=== PATIENT | female | born 1970 | race African-American/Black ===

== ENCOUNTER 2024-10-26 09:36 | Inpatient (IN) | payer OTHER ==
[2024-10-26] MEDS ORDERED: morphine SULFATE 4 MG/ML VIAL ONE (10:49)
[2024-10-26] MEDS ORDERED: ACETAMINOPHEN INJECTION 100 ML ONE (10:49)
[2024-10-26 10:54] LABS: BASO % 0.9 % (0-2.0); HEMATOCRIT 39.5 % (32.4-45.2); HEMOGLOBIN 13.1 GM/dL (10.7-15.3); LYMPH % 47.9 % (8-40); MCH 29.2 pg (25.7-33.7); MCHC 33.2 g/dl (32.0-36.0); MEAN PLT VOLUME 8.8 fl (7.5-11.1); MONO % 8.3 % (3.8-10.2); NEUT % 40.9 % (42.8-82.8); PLATELET COUNT 259 10^3/uL (134-434); RBC 4.49 M/mm3 (3.60-5.2); RDW 17.7 % (11.6-15.6); WHITE BLOOD COUNT 4.2 K/mm3 (4.0-10.0)
[2024-10-26 11:09] LABS: POTASSIUM 4.5 mmol/L (3.5-5.1)
[2024-10-26 11:11] LABS: BLOOD UREA NITROGEN 21.1 mg/dL (7-18); CALCIUM 9.2 mg/dL (8.5-10.1)
[2024-10-26 11:12] LABS: ALBUMIN 3.6 g/dl (3.4-5.0)
[2024-10-26] MEDS: ACETAMINOPHEN 1000 MG/100 ML BAG IVPB ONE (11:14)
[2024-10-26 11:15] LABS: CREATININE 1.1 mg/dL (0.55-1.3)
[2024-10-26] MEDS: morphine CARPU-JECT 4 MG/1 ML DISP.SYRIN IVPUSH ONE (11:15)
[2024-10-26 11:17] LABS: BILIRUBIN,TOTAL 0.5 mg/dL (0.2-1); TOT PROT 7.7 g/dl (6.4-8.2)
[2024-10-26 11:19] LABS: HCG,QUALITATIVE URINE Negative
[2024-10-26 11:25] LABS: PH,URINE 5.5 (5.0-8.0); URINE APPEARANCE Clear; URINE BILIRUBIN Negative (NEGATIVE); URINE COLOR Yellow; URINE GLUCOSE (UA) Negative (NEGATIVE); URINE KETONE Negative (NEGATIVE); URINE LEUK ESTERASE Negative (NEGATIVE); URINE NITRITE Negative (NEGATIVE); URINE PROTEIN Negative (NEGATIVE); URINE UROBILINOGEN 0.2 mg/dL (0.2-1.0)
[2024-10-26 11:40] LABS: THROAT:GRP A STREP NOT DETECTED (NOTDETECTED)
[2024-10-26 11:56] LABS: LACTIC ACID 4.4 mmol/L (0.4-2.0)
[2024-10-26 15:12] LABS: LACTIC ACID 3.4 mmol/L (0.4-2.0)
[2024-10-26] MEDS: SODIUM CHLORIDE 1,000 ML IV STA (15:38)
[2024-10-26 18:28] VITALS: BMI 44.0
[2024-10-26] MEDS: ACETAMINOPHEN 500 MG TABLET (FP) PO PRN (19:18)
[2024-10-26] MEDS: LACTATED RINGERS SOLUTION 1,000 ML/1,000 ML INFUS.BAG IV SCH (19:30)
[2024-10-26] MEDS: ACETAMINOPHEN 500 MG TABLET (FP) PO ONE (19:59)
[2024-10-26] MEDS: HEPARIN NA (PORCINE) 5,000 UNITS/ML 1ML VIAL SQ SCH (21:56)
[2024-10-26] MEDS: GABAPENTIN 400 MG CAPSULE PO SCH (21:57)
[2024-10-27 00:03] LABS: HIV INTERPRETATION NEGATIVE (NEGATIVE)
[2024-10-27] MEDS: ONDANSETRON 4 MG/2 ML VIAL IVPUSH ONE (07:17)
[2024-10-27 09:27] LABS: BASO % 0.6 % (0-2.0); EOS % 1.9 % (0-4.5); HEMOGLOBIN 11.9 GM/dL (10.7-15.3); LYMPH % 40.5 % (8-40); MCH 28.8 pg (25.7-33.7); MEAN CELL VOLUME 89.9 fl (80-96); MEAN PLT VOLUME 9.8 fl (7.5-11.1); MONO % 9.5 % (3.8-10.2); NEUT % 47.5 % (42.8-82.8); PLATELET COUNT 209 10^3/uL (134-434); RBC 4.12 M/mm3 (3.60-5.2); RDW 17.3 % (11.6-15.6); WHITE BLOOD COUNT 4.5 K/mm3 (4.0-10.0)
[2024-10-27] MEDS ORDERED: CEFTRIAXONE 1 GM in DEXTROSE 5%-WATER - 50 ML IVPB SCH (10:00)
[2024-10-27] MEDS: CEFTRIAXONE 1 G/50 ML PREMIX 50 ML IVPB SCH (11:01)
[2024-10-27 11:37] LABS: POTASSIUM 3.6 mmol/L (3.5-5.1)
[2024-10-27 11:47] LABS: ALBUMIN 3.2 g/dl (3.4-5.0)
[2024-10-27 11:49] LABS: TOT PROT 6.6 g/dl (6.4-8.2)
[2024-10-27 11:50] LABS: BILIRUBIN,DIRECT 0.3 mg/dL (0.0-0.2)
[2024-10-27 11:51] LABS: BLOOD UREA NITROGEN 14.2 mg/dL (7-18); CALCIUM 8.4 mg/dL (8.5-10.1)
[2024-10-27 11:52] LABS: BILIRUBIN,TOTAL 0.9 mg/dL (0.2-1)
[2024-10-27] MEDS: VANCOMYCIN ORAL SOLUTION 125 MG/2.5 ML PO SCH (12:35)
[2024-10-27] MEDS: PATIENT'S OWN MEDICATION (NON-FORMULARY) (Meloxicam [Meloxicam] 7.5 MG Tablet) PO SCH (13:57)
[2024-10-27] MEDS: DEXTROSE 5%-NORMAL SALINE 1,000 ML IV SCH (17:48)
[2024-10-27] MEDS: PIPERACILLIN/TAZOB 4.5 GM 4.5 GM/100 ML BAG IVPB SCH (17:49)
[2024-10-27] MEDS ORDERED: PIPERACILLIN/TAZOB 3.375 GM 3.375 GM in DEXTROSE 5%-WATER - 50 ML IVPB SCH (18:00)
[2024-10-27] MEDS ORDERED: PIPERACILLIN/TAZOB 3.375 GM 50 ML IVPB SCH (18:00)
[2024-10-28 10:38] LABS: BASO % 0.8 % (0-2.0); EOS % 5.3 % (0-4.5); HEMATOCRIT 37.7 % (32.4-45.2); HEMOGLOBIN 12.4 GM/dL (10.7-15.3); LYMPH % 30.1 % (8-40); MCH 29.1 pg (25.7-33.7); MCHC 32.8 g/dl (32.0-36.0); MEAN CELL VOLUME 88.6 fl (80-96); MEAN PLT VOLUME 9.1 fl (7.5-11.1); NEUT % 54.8 % (42.8-82.8); PLATELET COUNT 192 10^3/uL (134-434); RBC 4.25 M/mm3 (3.60-5.2); RDW 17.6 % (11.6-15.6); WHITE BLOOD COUNT 4.1 K/mm3 (4.0-10.0)
[2024-10-28 11:01] LABS: POTASSIUM 4.1 mmol/L (3.5-5.1)
[2024-10-28 11:06] LABS: ALBUMIN 3.4 g/dl (3.4-5.0)
[2024-10-28 11:07] LABS: BLOOD UREA NITROGEN 8.3 mg/dL (7-18)
[2024-10-28 11:08] LABS: CALCIUM 8.1 mg/dL (8.5-10.1); MAGNESIUM 1.9 mg/dL (1.8-2.4)
[2024-10-28 11:11] LABS: BILIRUBIN,TOTAL 0.5 mg/dL (0.2-1); TOT PROT 7.2 g/dl (6.4-8.2)
[2024-10-28] MEDS: MINERAL OIL/PET HY-PHL TOPICAL OINTMENT 454 GM JAR TP SCH (21:14)
[2024-10-29] MEDS: morphine SULFATE 4 MG/ML VIAL IVPB PRN (01:37)
[2024-10-29 08:59] LABS: BASO % 0.8 % (0-2.0); EOS % 5.5 % (0-4.5); HEMATOCRIT 34.1 % (32.4-45.2); HEMOGLOBIN 11.2 GM/dL (10.7-15.3); MCH 29.7 pg (25.7-33.7); MCHC 32.7 g/dl (32.0-36.0); MEAN CELL VOLUME 90.6 fl (80-96); MEAN PLT VOLUME 9.4 fl (7.5-11.1); MONO % 9.5 % (3.8-10.2); NEUT % 45.2 % (42.8-82.8); PLATELET COUNT 166 10^3/uL (134-434); RBC 3.76 M/mm3 (3.60-5.2); RDW 16.9 % (11.6-15.6); WHITE BLOOD COUNT 3.9 K/mm3 (4.0-10.0)
[2024-10-29 09:14] LABS: CHLORIDE 108 mmol/L (98-107); POTASSIUM 3.8 mmol/L (3.5-5.1); SODIUM 142 mmol/L (136-145)
[2024-10-29 09:19] LABS: CALCIUM 7.7 mg/dL (8.5-10.1)
[2024-10-29 09:20] LABS: ALBUMIN 3.1 g/dl (3.4-5.0); ANION GAP 7 mmol/L (4-13); CO2 26 mmol/L (21-32); GLUCOSE,RANDOM 113 mg/dL (74-106); MAGNESIUM 1.8 mg/dL (1.8-2.4)
[2024-10-29 09:21] LABS: BLOOD UREA NITROGEN 2.7 mg/dL (7-18)
[2024-10-29 09:23] LABS: CREATININE 0.8 mg/dL (0.55-1.3); SGOT/AST 74 U/L (15-37); SGPT/ALT 56 U/L (13-61)
[2024-10-29 09:25] LABS: BILIRUBIN,TOTAL 0.4 mg/dL (0.2-1); TOT PROT 6.4 g/dl (6.4-8.2)
[2024-10-29 09:26] LABS: ALK PHOS 80 U/L (45-117)
[2024-10-29] MEDS: LIDOCAINE 5% TOPICAL PATCH TP SCH (18:44)
[2024-10-29] MEDS: LIDOCAINE PATCH REMOVAL MC SCH (22:30)
[2024-10-30 09:50] LABS: BASO % 0.5 % (0-2.0); EOS % 4.8 % (0-4.5); HEMATOCRIT 34.8 % (32.4-45.2); HEMOGLOBIN 11.4 GM/dL (10.7-15.3); LYMPH % 34.4 % (8-40); MCH 29.5 pg (25.7-33.7); MCHC 32.8 g/dl (32.0-36.0); MEAN CELL VOLUME 89.9 fl (80-96); MEAN PLT VOLUME 9.5 fl (7.5-11.1); MONO % 8.2 % (3.8-10.2); NEUT % 52.1 % (42.8-82.8); PLATELET COUNT 159 10^3/uL (134-434); RBC 3.87 M/mm3 (3.60-5.2); RDW 17.1 % (11.6-15.6); WHITE BLOOD COUNT 4.5 K/mm3 (4.0-10.0)
[2024-10-30 10:04] LABS: POTASSIUM 3.4 mmol/L (3.5-5.1)
[2024-10-30 10:17] LABS: ALBUMIN 3.2 g/dl (3.4-5.0); BLOOD UREA NITROGEN 3.5 mg/dL (7-18); CALCIUM 7.9 mg/dL (8.5-10.1); MAGNESIUM 1.7 mg/dL (1.8-2.4)
[2024-10-30 10:20] LABS: CREATININE 0.8 mg/dL (0.55-1.3)
[2024-10-30 10:22] LABS: BILIRUBIN,TOTAL 0.6 mg/dL (0.2-1); TOT PROT 6.6 g/dl (6.4-8.2)
[2024-10-30] MEDS: POTASSIUM CHLORIDE ORAL LIQUID 20 MEQ/15 ML PO ONE (11:18)
[2024-10-31 09:21] LABS: BASO % 0.6 % (0-2.0); HEMOGLOBIN 12.1 GM/dL (10.7-15.3); LYMPH % 29.4 % (8-40); MCH 28.9 pg (25.7-33.7); MCHC 31.8 g/dl (32.0-36.0); MEAN CELL VOLUME 90.7 fl (80-96); MEAN PLT VOLUME 9.1 fl (7.5-11.1); MONO % 10.3 % (3.8-10.2); NEUT % 56.7 % (42.8-82.8); PLATELET COUNT 161 10^3/uL (134-434); RBC 4.19 M/mm3 (3.60-5.2); WHITE BLOOD COUNT 4.8 K/mm3 (4.0-10.0)
[2024-10-31 09:34] LABS: INR 1.04 (0.83-1.09); PROTHROMBIN TIME (PATIENT) 11.7 SEC (9.7-13.0)
[2024-10-31 09:49] LABS: POTASSIUM 3.8 mmol/L (3.5-5.1)
[2024-10-31 10:00] LABS: TOT PROT 7.3 g/dl (6.4-8.2)
[2024-10-31 10:01] LABS: ALBUMIN 3.5 g/dl (3.4-5.0); BILIRUBIN,TOTAL 0.6 mg/dL (0.2-1)
[2024-10-31 10:02] LABS: MAGNESIUM 1.9 mg/dL (1.8-2.4)
[2024-10-31 10:04] LABS: CREATININE 0.9 mg/dL (0.55-1.3)
[2024-10-31 10:05] LABS: CALCIUM 9.4 mg/dL (8.5-10.1)
[2024-10-31] MEDS: VANCOMYCIN 250 MG/5 ML ORAL SOLUTION (RESTRICTED TO ID ONLY) PO SCH (11:42)
[2024-10-31 14:36] VITALS: RESP 18
[2024-11-01 09:39] LABS: BASO % 0.4 % (0-2.0); EOS % 5.5 % (0-4.5); HEMATOCRIT 35.2 % (32.4-45.2); HEMOGLOBIN 11.8 GM/dL (10.7-15.3); MCH 30.1 pg (25.7-33.7); MCHC 33.4 g/dl (32.0-36.0); MEAN CELL VOLUME 90.1 fl (80-96); MEAN PLT VOLUME 9.6 fl (7.5-11.1); MONO % 12.3 % (3.8-10.2); NEUT % 49.8 % (42.8-82.8); PLATELET COUNT 144 10^3/uL (134-434); RBC 3.91 M/mm3 (3.60-5.2); RDW 17.3 % (11.6-15.6); WHITE BLOOD COUNT 4.9 K/mm3 (4.0-10.0)
[2024-11-01 09:51] LABS: POTASSIUM 3.7 mmol/L (3.5-5.1)
[2024-11-01 10:00] LABS: ALBUMIN 3.2 g/dl (3.4-5.0); CALCIUM 9.5 mg/dL (8.5-10.1); MAGNESIUM 1.7 mg/dL (1.8-2.4)
[2024-11-01 10:04] LABS: BILIRUBIN,TOTAL 0.4 mg/dL (0.2-1); TOT PROT 6.8 g/dl (6.4-8.2)
[2024-11-01] MEDS: MAGNESIUM SULFATE IN WATER 2 GM/50 ML IVPB IVPB ONE (12:37)
[2024-11-02 08:39] LABS: BASO % 0.4 % (0-2.0); EOS % 3.7 % (0-4.5); HEMOGLOBIN 11.4 GM/dL (10.7-15.3); LYMPH % 32.7 % (8-40); MCH 29.5 pg (25.7-33.7); MCHC 32.5 g/dl (32.0-36.0); MEAN CELL VOLUME 90.8 fl (80-96); MEAN PLT VOLUME 9.6 fl (7.5-11.1); NEUT % 51.2 % (42.8-82.8); PLATELET COUNT 157 10^3/uL (134-434); RBC 3.85 M/mm3 (3.60-5.2); RDW 17.9 % (11.6-15.6); WHITE BLOOD COUNT 5.3 K/mm3 (4.0-10.0)
[2024-11-02 08:40] LABS: POTASSIUM 3.9 mmol/L (3.5-5.1)
[2024-11-02 08:47] LABS: CALCIUM 9.4 mg/dL (8.5-10.1); CREATININE 0.9 mg/dL (0.55-1.3)
[2024-11-02 08:48] LABS: ALBUMIN 3.1 g/dl (3.4-5.0); BLOOD UREA NITROGEN 10.2 mg/dL (7-18)
[2024-11-02 08:49] LABS: BILIRUBIN,TOTAL 0.3 mg/dL (0.2-1); TOT PROT 6.6 g/dl (6.4-8.2)
[2024-11-02 09:38] VITALS: BP 130/91; PULSE 75; TEMP 98.2
[2024-11-02] MEDS: ACETAMINOPHEN 500 MG TABLET (FP) PO ONE (11:56)
== END 2024-11-02 13:18 | disposition home or self-care (01) | DRG 248 ==
LOC: JER 09:36 → JERBED 15:38 → OBSVTOIN 16:42 → J8W 17:42
PROVIDERS: ADMIT Internal Medicine; ATTEND Nurse Practitioner Acute Care
DX: A04.72 Enterocolitis due to Clostridium difficile, not specified as recurrent (principal); E87.20 Acidosis, unspecified; Z68.41 Body mass index [BMI] 40.0-44.9, adult; E66.01 Morbid (severe) obesity due to excess calories; R16.0 Hepatomegaly, not elsewhere classified; K76.0 Fatty (change of) liver, not elsewhere classified; F17.210 Nicotine dependence, cigarettes, uncomplicated; K57.32 Diverticulitis of large intestine without perforation or abscess without bleeding; M06.9 Rheumatoid arthritis, unspecified
CPT/HCPCS: 0241U-QW; 36415; 74176-TC; 74177-TC; 76700-TC; 76882-TC-RT-FY; 80048; 80053; 80076; 81003; 82977; 83605; 83690; 83735; 84703; 85025; 85610; 86140; 86704; 86708; 86803; 87045; 87046; 87086; 87324; 87340; 87389; 87449; 87493; 87517; 87651; 93005; 93010; 99285-25; G0378; J0131; J1644

== ENCOUNTER 2024-11-18 12:04 | Inpatient (IN) | payer OTHER ==
[2024-11-18] MEDS ORDERED: ACETAMINOPHEN 500 MG TABLET (FP) ONE (12:42)
[2024-11-18] MEDS: ACETAMINOPHEN 500 MG TABLET (FP) PO ONE (12:45)
[2024-11-18 13:16] LABS: BASO % 0.4 % (0-2.0); EOS % 1.4 % (0-4.5); HEMATOCRIT 40.2 % (32.4-45.2); LYMPH % 35.7 % (8-40); MCH 29.3 pg (25.7-33.7); MCHC 32.4 g/dl (32.0-36.0); MEAN CELL VOLUME 90.5 fl (80-96); MEAN PLT VOLUME 8.9 fl (7.5-11.1); MONO % 11.2 % (3.8-10.2); NEUT % 51.3 % (42.8-82.8); PLATELET COUNT 336 10^3/uL (134-434); RBC 4.44 M/mm3 (3.60-5.2); RDW 18.3 % (11.6-15.6); WHITE BLOOD COUNT 8.3 K/mm3 (4.0-10.0)
[2024-11-18 13:24] LABS: INR 1.06 (0.83-1.09)
[2024-11-18 13:27] LABS: ACTIVATED PTT 32.2 SECONDS (25.2-36.5)
[2024-11-18 13:42] LABS: CHLORIDE 110 mmol/L (98-107); SODIUM 143 mmol/L (136-145)
[2024-11-18 13:44] LABS: CALCIUM 9.1 mg/dL (8.5-10.1)
[2024-11-18 13:45] LABS: ALBUMIN 3.5 g/dl (3.4-5.0); BLOOD UREA NITROGEN 9.6 mg/dL (7-18); CO2 25 mmol/L (21-32); GLUCOSE,RANDOM 102 mg/dL (74-106); MAGNESIUM 2.5 mg/dL (1.8-2.4)
[2024-11-18 13:48] LABS: ANION GAP 8 mmol/L (4-13); CREATININE 0.9 mg/dL (0.55-1.3); PHOSPHOROUS 4.7 mg/dL (2.5-4.9); POTASSIUM 6.4 mmol/L (3.5-5.1); SGOT/AST 47 U/L (15-37); SGPT/ALT 38 U/L (13-61)
[2024-11-18 13:49] LABS: BILIRUBIN,TOTAL 0.4 mg/dL (0.2-1); TOT PROT 8.3 g/dl (6.4-8.2)
[2024-11-18 13:51] LABS: ALK PHOS 123 U/L (45-117)
[2024-11-18 16:11] LABS: CHLORIDE 113 mmol/L (98-107); POTASSIUM 4.2 mmol/L (3.5-5.1); SODIUM 147 mmol/L (136-145)
[2024-11-18 16:13] LABS: CALCIUM 9.1 mg/dL (8.5-10.1)
[2024-11-18 16:14] LABS: ALBUMIN 3.3 g/dl (3.4-5.0); ANION GAP 8 mmol/L (4-13); BLOOD UREA NITROGEN 11.6 mg/dL (7-18); CO2 26 mmol/L (21-32); GLUCOSE,RANDOM 100 mg/dL (74-106)
[2024-11-18 16:17] LABS: CREATININE 0.9 mg/dL (0.55-1.3); SGOT/AST 26 U/L (15-37); SGPT/ALT 30 U/L (13-61)
[2024-11-18 16:19] LABS: BILIRUBIN,TOTAL 0.2 mg/dL (0.2-1); TOT PROT 7.4 g/dl (6.4-8.2)
[2024-11-18 16:20] LABS: ALK PHOS 116 U/L (45-117)
[2024-11-18] MEDS ORDERED: KETOROLAC TROMETHAMINE 15 MG/ML VIAL ONE (20:25)
[2024-11-18] MEDS: KETOROLAC TROMETHAMINE 15 MG/ML VIAL IM ONE (20:32)
[2024-11-19] MEDS ORDERED: ACETAMINOPHEN INJECTION 100 ML ONE (02:23)
[2024-11-19] MEDS ORDERED: GABAPENTIN 400 MG CAPSULE ONE (02:23)
[2024-11-19] MEDS: ACETAMINOPHEN 1000 MG/100 ML BAG IVPB PRN (02:29)
[2024-11-19] MEDS: GABAPENTIN 400 MG CAPSULE PO SCH (02:29)
[2024-11-19] MEDS: KETOROLAC TROMETHAMINE 15 MG/ML VIAL IVPUSH PRN (05:31)
[2024-11-19 06:54] VITALS: BMI 42.5
[2024-11-19] MEDS ORDERED: PATIENT'S OWN MEDICATION (NON-FORMULARY) (Meloxicam [Meloxicam] 7.5 MG Tablet) PO SCH (10:00)
[2024-11-19] MEDS: LACTATED RINGERS SOLUTION 1,000 ML/1,000 ML INFUS.BAG IV SCH (10:00)
[2024-11-19] MEDS: LIDOCAINE 4% PATCH TP SCH (10:25)
[2024-11-19] MEDS: ENOXAPARIN NA (PORCINE) 40 MG/0.4 ML DISP.SYRIN SQ SCH ×2 (10:26→21:17)
[2024-11-19] MEDS: ONDANSETRON 4 MG/2 ML VIAL IVPUSH PRN (12:47)
[2024-11-19] MEDS: CYCLOBENZAPRINE HCL 5 MG TABLET PO SCH (14:31)
[2024-11-19] MEDS: LIDOCAINE PATCH REMOVAL MC SCH (21:18)
[2024-11-20 07:45] LABS: METHADONE, UR NEGATIVE (NEGATIVE)
[2024-11-20 07:51] LABS: PH,URINE 5.5 (5.0-8.0); URINE APPEARANCE CLEAR; URINE BILIRUBIN NEGATIVE (NEGATIVE); URINE COLOR YELLOW; URINE GLUCOSE (UA) NEGATIVE (NEGATIVE); URINE KETONE TRACE (NEGATIVE); URINE LEUK ESTERASE NEGATIVE (NEGATIVE); URINE NITRITE NEGATIVE (NEGATIVE); URINE PROTEIN TRACE (NEGATIVE); URINE UROBILINOGEN 0.2 mg/dL (0.2-1.0)
[2024-11-20 07:54] LABS: COCAINE, UR NEGATIVE (NEGATIVE); OPIATES, URI NEGATIVE (NEGATIVE); PHENCYCLIDINE,URINE NEGATIVE (NEGATIVE); URINE AMPHETAMINES NEGATIVE (NEGATIVE); URINE BARBITURATES NEGATIVE (NEGATIVE); URINE BENZODIAZEPINES NEGATIVE (NEGATIVE)
[2024-11-20] MEDS: TAMSULOSIN HCL 0.4 MG CAP PO ONE (17:56)
[2024-11-21 13:33] LABS: BASO % 0.3 % (0-2.0); EOS % 2.2 % (0-4.5); HEMATOCRIT 33.6 % (32.4-45.2); HEMOGLOBIN 11.1 GM/dL (10.7-15.3); LYMPH % 24.1 % (8-40); MCH 29.3 pg (25.7-33.7); MEAN CELL VOLUME 88.9 fl (80-96); MEAN PLT VOLUME 9.3 fl (7.5-11.1); NEUT % 66.4 % (42.8-82.8); PLATELET COUNT 256 10^3/uL (134-434); RBC 3.78 M/mm3 (3.60-5.2); RDW 17.2 % (11.6-15.6); WHITE BLOOD COUNT 6.9 K/mm3 (4.0-10.0)
[2024-11-21 13:55] LABS: POTASSIUM 4.1 mmol/L (3.5-5.1)
[2024-11-21 13:57] LABS: CALCIUM 8.9 mg/dL (8.5-10.1)
[2024-11-21 13:58] LABS: BLOOD UREA NITROGEN 12.3 mg/dL (7-18)
[2024-11-21 14:01] LABS: CREATININE 0.9 mg/dL (0.55-1.3)
[2024-11-21 14:02] LABS: BILIRUBIN,TOTAL 0.5 mg/dL (0.2-1)
[2024-11-21 14:03] LABS: TOT PROT 6.7 g/dl (6.4-8.2)
[2024-11-21] MEDS ORDERED: ALBUTEROL SO4 HFA INHALER IH PRN (16:08)
[2024-11-21] MEDS: MINERAL OIL/PET HY-PHL TOPICAL OINTMENT 454 GM JAR TP SCH (22:41)
[2024-11-22 09:07] LABS: BASO % 0.3 % (0-2.0); EOS % 3.2 % (0-4.5); HEMATOCRIT 33.4 % (32.4-45.2); HEMOGLOBIN 11.2 GM/dL (10.7-15.3); LYMPH % 32.7 % (8-40); MCH 29.7 pg (25.7-33.7); MCHC 33.6 g/dl (32.0-36.0); MEAN CELL VOLUME 88.3 fl (80-96); MEAN PLT VOLUME 9.1 fl (7.5-11.1); MONO % 9.1 % (3.8-10.2); NEUT % 54.7 % (42.8-82.8); PLATELET COUNT 218 10^3/uL (134-434); RBC 3.78 M/mm3 (3.60-5.2); RDW 17.1 % (11.6-15.6); WHITE BLOOD COUNT 4.9 K/mm3 (4.0-10.0)
[2024-11-22 09:38] LABS: ALBUMIN 2.9 g/dl (3.4-5.0)
[2024-11-22 09:39] LABS: MAGNESIUM 1.9 mg/dL (1.8-2.4)
[2024-11-22 09:43] LABS: BILIRUBIN,TOTAL 0.3 mg/dL (0.2-1); BLOOD UREA NITROGEN 12.6 mg/dL (7-18); CREATININE 0.8 mg/dL (0.55-1.3)
[2024-11-22 09:44] LABS: TOT PROT 6.6 g/dl (6.4-8.2)
[2024-11-23] MEDS: KETOROLAC TROMETHAMINE 10 MG TABLET PO PRN (10:59)
[2024-11-24] MEDS: ACETAMINOPHEN 325 MG TABLET (FP) PO PRN
[2024-11-24 09:24] VITALS: RESP 20
[2024-11-24] MEDS: LIDOCAINE 5% TOPICAL PATCH TP SCH (14:54)
[2024-11-24 15:24] VITALS: BP 129/82; PULSE 87; TEMP 97.5
[2024-11-24] MEDS: LIDOCAINE PATCH REMOVAL MC SCH (21:13)
== END 2024-11-24 21:50 | DRG 347 ==
LOC: JER 12:04 → JERBED 23:15 → J8W 11-19 05:27
PROVIDERS: ADMIT Internal Medicine; ATTEND Nurse Practitioner Family
DX: M43.16 Spondylolisthesis, lumbar region (principal); Z68.41 Body mass index [BMI] 40.0-44.9, adult; I10 Essential (primary) hypertension; E66.01 Morbid (severe) obesity due to excess calories; F17.210 Nicotine dependence, cigarettes, uncomplicated; J45.909 Unspecified asthma, uncomplicated; M06.9 Rheumatoid arthritis, unspecified
CPT/HCPCS: 0241U-QW; 36415; 70450-TC; 71045-TC-FY; 72125-TC; 72131-TC; 73521-TC-FY; 74019-TC-FY; 80053; 80307; 81003; 82550; 82553; 83735; 84100; 84703; 85025; 85610; 85730; 93005; 93010; 97116-GP; 99285-25; J0131

== ENCOUNTER 2025-04-27 10:39 | Emergency (ER) | payer OTHER ==
[2025-04-27 11:29] VITALS: TEMP 98.7; BMI 43.7
[2025-04-27] MEDS: ACETAMINOPHEN 1000 MG/100 ML BAG IVPB ONE ×2 (12:58→19:38)
[2025-04-27] MEDS: SODIUM CHLORIDE 1,000 ML IV STA (12:58)
[2025-04-27] MEDS ORDERED: ACETAMINOPHEN INJECTION 100 ML ONE ×2 (12:59→19:32)
[2025-04-27 13:11] LABS: ABSOLUTE IMMATURE GRANULOCYTES 0.02 x10^3/uL (0.0-0.031); BASOPHILS # 0.03 x10^3/uL (0.01-0.08); EOSINOPHIL % 0.8 % (0.7-5.8); EOSINOPHILS # 0.05 x10^3/uL (0.04-0.36); HEMOGLOBIN 11.7 g/dL (11.2-15.7); MCHC 32.5 g/dl (32.2-35.5); MEAN CELL VOLUME 88.9 fl (79.4-94.8); MEAN PLT VOLUME 11.4 fl (9.4-12.3); MONOCYTE # 0.65 x10^3/uL (0.24-0.86); MONOCYTE % 9.9 % (4.7-12.5); PLATELET COUNT 235 x10^3/uL (182-369); RDW 16.4 % (12.3-16.6)
[2025-04-27 13:18] LABS: INR 0.99 (0.83-1.09); PROTHROMBIN TIME (PATIENT) 10.9 SEC (9.7-13.0)
[2025-04-27 13:40] LABS: CHLORIDE 104 mmol/L (98-107); SODIUM 135 mmol/L (136-145)
[2025-04-27 13:41] LABS: POTASSIUM 7.7 mmol/L (3.5-5.1)
[2025-04-27 13:42] LABS: CALCIUM 9.6 mg/dL (8.5-10.1)
[2025-04-27 13:43] LABS: ALBUMIN 3.2 g/dl (3.4-5.0); ANION GAP 6 mmol/L (4-13); BLOOD UREA NITROGEN 20.4 mg/dL (7-18); CO2 26 mmol/L (21-32); GLUCOSE,RANDOM 108 mg/dL (74-106); MAGNESIUM 2.4 mg/dL (1.8-2.4)
[2025-04-27 13:46] LABS: CREATININE 1.2 mg/dL (0.55-1.3)
[2025-04-27 13:47] LABS: BILIRUBIN,TOTAL 0.9 mg/dL (0.2-1); SGOT/AST 140 U/L (15-37); SGPT/ALT 93 U/L (13-61); TOT PROT 7.9 g/dl (6.4-8.2)
[2025-04-27 13:49] LABS: ALK PHOS 126 U/L (45-117)
[2025-04-27] MEDS ORDERED: KETOROLAC TROMETHAMINE 30 MG/1 ML VIAL ONE (14:10)
[2025-04-27] MEDS: KETOROLAC TROMETHAMINE 30 MG/1 ML VIAL IVPUSH ONE (14:11)
[2025-04-27 16:06] LABS: POTASSIUM 3.7 mmol/L (3.5-5.1)
[2025-04-27 16:07] LABS: CALCIUM 8.4 mg/dL (8.5-10.1)
[2025-04-27 16:08] LABS: BLOOD UREA NITROGEN 19.8 mg/dL (7-18)
[2025-04-27 16:11] LABS: CREATININE 1.2 mg/dL (0.55-1.3)
[2025-04-27] MEDS ORDERED: EPINEPHrine 1:10,000 (P-F SYR) 1 MG/10 ML DISP.SYRIN ONE (21:58)
[2025-04-28] MEDS ORDERED: ACETAMINOPHEN INJECTION 100 ML ONE (01:49)
[2025-04-28] MEDS: ACETAMINOPHEN 1000 MG/100 ML BAG IVPB ONE (01:56)
[2025-04-28 04:33] VITALS: BP 143/70; PULSE 81; RESP 17
== END 2025-04-28 04:33 | disposition home or self-care (01) ==
LOC: JER 10:39
PROC: 3E0333Z Introduction of Anti-inflammatory into Peripheral Vein, Percutaneous Approach (ICD-10-PCS; principal; 2025-04-27)
PROC: 3E033NZ Introduction of Analgesics, Hypnotics, Sedatives into Peripheral Vein, Percutaneous Approach (ICD-10-PCS; 2025-04-27)
PROC: 3E033NZ Introduction of Analgesics, Hypnotics, Sedatives into Peripheral Vein, Percutaneous Approach (ICD-10-PCS; 2025-04-27)
PROC: 3E0337Z Introduction of Electrolytic and Water Balance Substance into Peripheral Vein, Percutaneous Approach (ICD-10-PCS; 2025-04-27)
PROC: 3E033NZ Introduction of Analgesics, Hypnotics, Sedatives into Peripheral Vein, Percutaneous Approach (ICD-10-PCS; 2025-04-28)
DX: M54.50 Low back pain, unspecified (principal); G89.29 Other chronic pain; N93.9 Abnormal uterine and vaginal bleeding, unspecified; R26.2 Difficulty in walking, not elsewhere classified
CPT/HCPCS: 36415; 72132-TC; 74176-TC; 76830-TC; 80048; 80053; 83735; 85025; 85610; 85730; 93005; 93010; 99285-25; J0131

== ENCOUNTER 2025-08-07 15:10 | Emergency (ER) | payer OTHER ==
[2025-08-07 15:41] VITALS: BMI 43.7
[2025-08-07] MEDS ORDERED: ALBUTEROL SO4 2.5/IPRATROPIUM 0.5 INH SOL 3 ML VIAL.NEB. NEB ONE (16:20)
[2025-08-07] MEDS ORDERED: ACETAMINOPHEN INJECTION 100 ML ONE (16:20)
[2025-08-07] MEDS: ACETAMINOPHEN 1000 MG/100 ML BAG IVPB ONE (16:26)
[2025-08-07] MEDS: ALBUTEROL SO4 2.5/IPRATROPIUM 0.5 INH SOL 3 ML VIAL.NEB. NEB ONE (16:26)
[2025-08-07 16:34] LABS: ABSOLUTE IMMATURE GRANULOCYTES 0.02 x10^3/uL (0.0-0.031); BASOPHILS # 0.04 x10^3/uL (0.01-0.08); EOSINOPHIL % 0.2 % (0.7-5.8); EOSINOPHILS # 0.01 x10^3/uL (0.04-0.36); MCHC 32.2 g/dl (32.2-35.5); MEAN CELL VOLUME 89.3 fl (79.4-94.8); MEAN PLT VOLUME 11.3 fl (9.4-12.3); MONOCYTE # 0.48 x10^3/uL (0.24-0.86); MONOCYTE % 7.7 % (4.7-12.5); RDW 16.4 % (12.3-16.6)
[2025-08-07 18:00] LABS: TOT PROT 8.2 g/dl (6.4-8.2)
[2025-08-07 18:01] LABS: CO2 19.0 mmol/L (21-32)
[2025-08-07 18:26] LABS: GLUCOSE,RANDOM 89.0 mg/dL (74-106)
[2025-08-07 18:30] LABS: ALK PHOS 98.0 U/L (40-150)
[2025-08-07 18:32] LABS: SGOT/AST 62.0 U/L (5-34); SGPT/ALT 42.0 U/L (0-55)
[2025-08-07 18:33] LABS: CREATININE 0.8 mg/dL (0.55-1.3)
[2025-08-07 19:13] LABS: HIV INTERPRETATION NEGATIVE (NEGATIVE)
[2025-08-07 19:15] LABS: HCV DIAGNOSTIC IN-HOUSE W/RFLX NON-REACTIVE (NONREACTIVE)
[2025-08-07 19:47] VITALS: BP 145/64; PULSE 80; RESP 18; TEMP 98.3
== END 2025-08-07 22:11 | disposition home or self-care (01) ==
LOC: JER 15:10
PROC: 3E033NZ Introduction of Analgesics, Hypnotics, Sedatives into Peripheral Vein, Percutaneous Approach (ICD-10-PCS; principal; 2025-08-07)
PROC: 3E0F7GC Introduction of Other Therapeutic Substance into Respiratory Tract, Via Natural or Artificial Opening (ICD-10-PCS; 2025-08-07)
DX: M79.10 Myalgia, unspecified site (principal); R06.02 Shortness of breath; R11.2 Nausea with vomiting, unspecified; R19.7 Diarrhea, unspecified
CPT/HCPCS: 36415; 71046-TC-FY; 80053; 83735; 84484; 85025; 86803; 87389; 87637-QW; 93005; 93010; 93970-TC; 94640; 96374; 99285-25